=== PATIENT | female | born 1955 | race Hispanic/Latino ===

== ENCOUNTER 2017-02-17 08:25 | Inpatient (IN) | payer BC ==
[~2017-02-17] VITALS: Ht 152.4 cm; Wt 62.8 kg
[~2017-02-17 08:25] MED LIST: CIPROFLOXACN500 MG PO; GLIPIZIDE10 M2 PO; LISINOPRIL40 MG PO; METFORMIN1000 MG PO; PREVACID30 M3 PO
--- NOTE | 2017-02-17 08:50 | NUR ---
PT ON O2 2L/M VIA NC PER RT. NEB CONTINUES.
[2017-02-17] MEDS ORDERED: JENTADUETO1 TA1 PO (08:52)
[2017-02-17] MEDS ORDERED: MULTIVITAMIN PO (08:53)
[2017-02-17 09:14] LABS: HEMATOCRIT 31.2 % (37.0-47.0); HEMOGLOBIN 10.1 g/dl (12.0-16.0); IMMATURE GRANULOCYTES 0.8 % (0.0-1.0); MEAN CELL VOLUME 88.9 fL CALC (80.0-100.0); MEAN CORPUSCULAR HGB 28.8 pG CALC (26.0-32.0); MEAN CORPUSCULAR HGB CONC 32.4 g/L CALC (32.0-36.0); NEUT# 16.99 thou/uL (2.00-7.15); RED BLOOD COUNT 3.51 mill/uL (4.20-5.60); RED CELL DISTRI WIDTH 16.4 % (11.5-15.5)
[2017-02-17 09:22] LABS: ALBUMIN 3.5 g/dL (3.2-5.0); ALKALINE PHOSPHATASE 129 u/l (38-126); ANION GAP 14 (6-22 (CALC)); BILIRUBIN, TOTAL 0.8 mg/dL (0.0-1.4); BUN 10 mg/dL (8-23); BUN/CREATININE RATIO 12 (12-20 (CALC)); CALCIUM 9.1 mg/dL (8.4-10.2); CARBON DIOXIDE 27 mmol/l (22-30); CHLORIDE 104 mmol/l (95-108); CREATININE 0.8 mg/dL (0.5-1.0); GFR > 60 ML/MIN (>=60 (CALC)); GFR FOR AFR.AMER. > 60 ML/MIN (>=60 (CALC)); GLUCOSE 179 mg/dL (82-115); POTASSIUM 3.3 mmol/l (3.5-5.1); SGOT/AST 68 u/l (9-36); SGPT/ALT 56 u/l (11-66); SODIUM 141 mmol/l (137-146); TOTAL PROTEIN 7.7 g/dL (6.3-8.2)
[2017-02-17 09:23] LABS: INTERNATIONAL NORMALIZED RATIO 1.1 RATIO (0.7-1.3); PROTHROMBIN TIME 12.4 SECONDS (9.0-12.5)
[2017-02-17 09:34] LABS: MYOGLOBIN 41 ng/mL (0 - 62)
--- NOTE | 2017-02-17 09:50 | NUR ---
SBAR PRINTED TO FLOOR
--- NOTE | 2017-02-17 09:55 | NUR ---
PT TO BSC W/ASSIST. VOIDED APPROX 1000 ML YELLOW URINE. SPECIMEN COLLECTED. IV SITE HEALTHY
[2017-02-17 11:00] LABS: URINE BILIRUBIN - DIPSTICK NEGATIVE (NEGATIVE); URINE BLOOD DIPSTICK SMALL (NEGATIVE); URINE COLOR YELLOW; URINE GLUCOSE - DIPSTICK NEGATIVE (NEGATIVE); URINE KETONE NEGATIVE (NEGATIVE); URINE NITRITE - DIPSTICK NEGATIVE (Negative); URINE PH 5.5 (4.5-8.0); URINE PROTEIN - DIPSTICK NEGATIVE (NEG-TRACE); URINE SPECIFIC GRAVITY <=1.005; URINE UROBILINOGEN - DIPSTICK 0.2 E.U./dL (0.2)
[2017-02-17 11:01] LABS: URINE CLARITY HAZY; URINE LEUK ESTERASE SMALL (NEGATIVE)
[2017-02-17 11:02] LABS: URINE BACTERIA FEW hpf; URINE EPITHELIAL CELLS FEW EPI/hpf (0-FEW)
--- NOTE | 2017-02-17 11:02 | NUR ---
REPORT CALLED TO CHON SAGE, ON MEDSURG. PT TO MEDSURG VIA STRETCHER ON TELEMETRY. IV SITE HEALTHY. RESP EVEN AND UNLABORED. O2 2L/M VIA NC,
[2017-02-17 11:03] LABS: CHOLESTEROL HDL RATIO 6.8 (<4.4 (CALC)); MAGNESIUM 1.5 mg/dL (1.6-2.3)
--- NOTE | 2017-02-17 11:28 | NUR ---
PT ARRIVED TO FLOOR VIA STRETCHER ACCOMPANIED BY CHON WALLS AND FAMILY MEMBERS X 2. PT IS MONGOLIAN SPEAKING ONLY. FAMILY TRANSLATING AT THIS TIME. PT ORIENTED TO ROOM AND EQUIPMENT. CALL LIGHT REVIEWED AND IN REACH. PLAN OF CARE DISCUSSED. REPORTING OF CONCERNS ENCOURAGED. PT STATES UNDERSTANDING.
[2017-02-17 11:37] VITALS: BP 160/75
--- NOTE | 2017-02-17 15:01 | NUR ---
PT SITTING UPRIGHT IN BED. SEVERAL FAMILY MEMBERS AT BEDSIDE. NO COMPLAINTS AT THIS TIME. DR. WOOD IN TO SEE PT.
[2017-02-17 15:44] VITALS: BP 150/66
[2017-02-17 19:10] VITALS: BP 129/73
--- NOTE | 2017-02-17 19:30 | NUR ---
PATIENT SITTING ON THE SIDE OF THE BED WITH SEVERAL FAMILY MEMBERS AT BEDSIDE. PATIENT IS AWAKE ALERT AND ORIENTEDX3. PAKISTANI SPEAKING ONLY WITH FAMILY MEMBERS TRANSLATING FOR STAFF. PATIENT DENIES ANY PAIN AT THIS TIME. PATIENT IS VOIDING CLEAR YELLOW URINE AND HAD BM THIS MORNING. INSTRUCTED REGUARDING STRICT I&O AND TO SAVE ALL URINE FOR MEASURMENT. TELE MONITORING DEVICE IN PLACE AND HEP LOCK TO LEFT AC INTACT AND APPEARS HEALTHY AT THIS TIME. PATIENT IS WEARING O2 VIA NASAL CANNULA AT 2LPM. LUNGS ARE CLEAR AND ABD IS SOFT WITH BS+. BLE SWELLING NOTED AT 2+-ENCOURAGED TO KEEP FEET ELEVATED WHEN ABLE. SAFETY PRECATIONS REINFORCED WITH PATIENT AND FAMILY. CALL LIGHT IN REACH. WILL CONT TO MONITOR.
--- NOTE | 2017-02-17 20:15 | NUR ---
PATIENT WENT TO RADIOLOGY AND BACK FOR CTA CHEST VIA WHEELCHAIR. PATIENT TOLERATED WELL. NO COMPLAINTS AT THIS TIME. FAMILY REMAINS AT BEDSIDE. CALL LIGHT REMAINS IN REACH. WILL CONT TO MONITOR.
--- NOTE | 2017-02-17 21:00 | NUR ---
SITTING ON SIDE OF BED, RESPIRATIONS EVEN AND UNLABORED. DENIES SOB, DAUGHTER AT BED SIDE. CALL LIGHT IN REACH.
[2017-02-17 23:43] VITALS: BP 107/66
--- NOTE | 2017-02-18 00:30 | NUR ---
PT SITTING ON SIDE OF BED RESPIRATIONS EVEN AND UNLABORED ON O2 @2L VIA NC, C/O SOB WHEN LAYING IN BED, ORIENTED TO BED CONTROLS AND TO REPOSITION BED TO FOWLERS IF NEEDED, PT ADMITS TO FEELING BETTER WHEN IN FOWLERS POSITION OR SITTING ON SIDE OF BED. LASIX 40MG IV ADMINISTERED AT THS TIME. WILL CONTINUE TO MONITOR.
[2017-02-18 03:52] VITALS: BP 121/76
--- NOTE | 2017-02-18 05:30 | NUR ---
TEMP 101.3, DR. WOOD NOTIFIED, NEW ORDERS RECEIVED FOR TYLENOL AND B/C. B/C DRAWN BY KHADAR FINANCIAL COORDINATOR, PT TOLERATED WELL. TYLENOL 650MG PO ADMINISTERED AT 0607, WILL CONTINUE OT MONITOR, DENIES PAIN.
[2017-02-18 05:56] LABS: HEMATOCRIT 30.8 % (37.0-47.0); HEMOGLOBIN 10.1 g/dl (12.0-16.0); IMMATURE GRANULOCYTES 1.6 % (0.0-1.0); MEAN CELL VOLUME 87.7 fL CALC (80.0-100.0); MEAN CORPUSCULAR HGB 28.8 pG CALC (26.0-32.0); MEAN CORPUSCULAR HGB CONC 32.8 g/L CALC (32.0-36.0); NEUT# 15.14 thou/uL (2.00-7.15); RED BLOOD COUNT 3.51 mill/uL (4.20-5.60); RED CELL DISTRI WIDTH 16.4 % (11.5-15.5)
[2017-02-18 06:17] LABS: ANION GAP 15 (6-22 (CALC)); BUN 11 mg/dL (8-23); BUN/CREATININE RATIO 12 (12-20 (CALC)); CALCULATED LDLCHOLESTEROL 113 mg/dL (62-129 (CALC)); CARBON DIOXIDE 31 mmol/l (22-30); CHLORIDE 96 mmol/l (95-108); CHOLESTEROL HDL RATIO 6.4 (<4.4 (CALC)); CREATININE 0.9 mg/dL (0.5-1.0); GFR > 60 ML/MIN (>=60 (CALC)); GFR FOR AFR.AMER. > 60 ML/MIN (>=60 (CALC)); GLUCOSE 165 mg/dL (82-115); HDL CHOLESTEROL 28 mg/dL (>=40); MAGNESIUM 1.5 mg/dL (1.6-2.3); POTASSIUM 4.2 mmol/l (3.5-5.1); SODIUM 138 mmol/l (137-146); TOTAL CHOLESTEROL 178 mg/dl (0-199); TOTAL TRIGLYCERIDES 182 mg/dl (30-149); VLDL CHOLESTROL 36 mg/dl (1-41 (CALC))
--- NOTE | 2017-02-18 07:50 | NUR ---
REPORT RECEIVED FROM NADINE TERRY. PT SITTING ON SIDE OF BED. FAMILY MEMBER PRESENT. PT DENIES PAIN. NO SOB NOTED. EDEMA 2+ IN LE, MUCH IMPROVED FROM YESTERDAY. O2 @ 2L VIA NC. PLAN OF CARE DISCUSSED. REPORTING OF CONCERNS ENCOURAGED. CALL LIGHT REVIEWED AND IN REACH. FAMILY MEMBER ASSISTING FIBER OPTIC TECHNICIAN WITH TRANSLATION. PT STATES UNDERSTANDING.
[2017-02-18 07:52] VITALS: BP 117/62
--- NOTE | 2017-02-18 12:07 | NUR ---
PT SHOWERED, LINENS CHANGED. PT TOLERATED ACITIVTY WITHOUT SOB. MULTIPLE FAMILY MEMBERS IN ROOM AT THIS TIME.
--- NOTE | 2017-02-18 16:09 | NUR ---
PT DENIES COMPLAINTS AT THIS TIME. FAMILY PRESENT.
[2017-02-18 16:24] LABS: URINE BILIRUBIN - DIPSTICK NEGATIVE (NEGATIVE); URINE BLOOD DIPSTICK SMALL (NEGATIVE); URINE CLARITY HAZY; URINE COLOR YELLOW; URINE GLUCOSE - DIPSTICK 100 mg/dL (NEGATIVE); URINE KETONE NEGATIVE (NEGATIVE); URINE LEUK ESTERASE NEGATIVE (Negative); URINE NITRITE - DIPSTICK NEGATIVE (Negative); URINE PH 5.5 (4.5-8.0); URINE PROTEIN - DIPSTICK NEGATIVE (NEG-TRACE); URINE SPECIFIC GRAVITY 1.015; URINE UROBILINOGEN - DIPSTICK 0.2 E.U./dL (0.2)
[2017-02-18 16:29] LABS: URINE RBC 0-2 RBC/hpf (0-5); URINE SQUAMOUS EPITHELIAL CELL FEW EPI/hpf (0-FEW)
[2017-02-18 16:35] VITALS: BP 95/60
[2017-02-18 19:00] VITALS: BP 98/58
--- NOTE | 2017-02-18 21:22 | NUR ---
PT SITTING ON SIDE OF BED A/O X3, RESPIRATIONS EVEN AND UNLABORED ON O2 @2L VIA NC. ACCUCHECK 327, NOTIFIED DR. WOOD, NEW ORDER RECEIVED FOR NOVULOG 7UNITS SQ TOLERATED WELL, BED TIME SNACK PROVIDED. PT ADMITS TO FEELING BETTER TODAY, VANCOMYCIN SPIKED AND INFUSING TO LAC WITH NO COMPLICATIONS. FAMILY AT BED SIDE, ENCOURAGED TO USE CALL LIGHT FOR ASSISTANCE WILL CONTINUE TO MONITOR.
[2017-02-18 23:59] VITALS: BP 101/63
--- NOTE | 2017-02-19 00:11 | NUR ---
OOB AMBULATING TO BATHROOM WITH STEADY GAIT, VOIDING CLEAR YELLOW URINE. BACK TO BED CALL MONROE LEMUS. WILL CONTINUE TO MONITOR.
--- NOTE | 2017-02-19 04:00 | NUR ---
RESTING IN BED WITH EYES CLOSED, RESPIRATIONS EVEN AND UNLABORED. CALL LIGHT IN REACH.
[2017-02-19 06:19] LABS: HEMATOCRIT 29.5 % (37.0-47.0); HEMOGLOBIN 9.4 g/dl (12.0-16.0); IMMATURE GRANULOCYTES 0.7 % (0.0-1.0); MEAN CELL VOLUME 89.1 fL CALC (80.0-100.0); MEAN CORPUSCULAR HGB 28.4 pG CALC (26.0-32.0); MEAN CORPUSCULAR HGB CONC 31.9 g/L CALC (32.0-36.0); NEUT# 15.24 thou/uL (2.00-7.15); RED BLOOD COUNT 3.31 mill/uL (4.20-5.60); RED CELL DISTRI WIDTH 16.3 % (11.5-15.5)
[2017-02-19 06:34] LABS: ANION GAP 14 (6-22 (CALC)); BUN 22 mg/dL (8-23); BUN/CREATININE RATIO 22 (12-20 (CALC)); CARBON DIOXIDE 31 mmol/l (22-30); CHLORIDE 97 mmol/l (95-108); GFR 56 ML/MIN (>=60 (CALC)); GFR FOR AFR.AMER. > 60 ML/MIN (>=60 (CALC)); GLUCOSE 251 mg/dL (82-115); MAGNESIUM 1.9 mg/dL (1.6-2.3); POTASSIUM 4.4 mmol/l (3.5-5.1); SODIUM 138 mmol/l (137-146)
--- NOTE | 2017-02-19 07:41 | NUR ---
REPORT RECEIVED FROM NADINE TERRY. PT SITTING ON SIDE PF BED, PREPARING FOR SHOWER. NO COMPLAINTS AT THIS TIME. WET COUGH, CLEAR EXPECTORANT NOTED. 02 @ 2L VIA NC TO MAINTAIN SAT OF 90%. STEADY GAIT. PLAN OF CARE DISCUSSED. REPORTING OF CONCERNS ENCOURAGED. CALL LIGHT REVIEWED AND IN REACH. PT STATES UNDERSTANDING.
[2017-02-19 07:44] VITALS: BP 92/72
--- NOTE | 2017-02-19 09:30 | NUR ---
INFORMED OF PENDING TRANSFER TO [facility] PER DR. WOOD R/T ENDOCARDITIS. PT STATES UNDERSTANDING. [facility] CONFIRMS FACE SHEET RECEIVED. AWAITING BED ASSIGNMENT.
[2017-02-19 11:05] VITALS: BP 116/87
--- NOTE | 2017-02-19 12:00 | NUR ---
STILL AWAITING BED ASSIGNMENT FROM [facility].
--- NOTE | 2017-02-19 14:45 | NUR ---
ANOTHER FAX SHEET FAXED TO [facility] AT THIS TIME.
[2017-02-19 15:18] VITALS: BP 115/67
--- NOTE | 2017-02-19 17:37 | NUR ---
BED 879 A AT [facility] RECEIVED FROM CHON FRIEDMAN.
--- NOTE | 2017-02-19 17:44 | NUR ---
REPORT CALLED TO CHON LEWIS AT [facility].
[2017-02-19 18:50] VITALS: BP 113/62
--- NOTE | 2017-02-19 19:56 | NUR ---
PT SITTING ON SIDE OF BED A/O X3, RESPIRATIONS EVEN AND UNLABORED ON O2 @2L VIA NC. DENIES PAIN OR DISCOMFORT. TELE IN PLACE READING ST, PER ER. PT IS WAITING TO BE TRANSFERRED TO [facility] IS AWARE AND STATE WILL TRANSFER SELVIN. FAMILY AT BED SIDE. ENCOURAGED TO USE CALL LIGHT FOR ASSISTANCE. WILL CONTINUE TO MONITOR.
--- NOTE | 2017-02-19 20:00 | NUR ---
SPOKE WITH NURSING SHOP DIRECTOR JILLIAN GIVENS, [facility] AWARE OF PT'S TRANFER ORDER, WILL BE TRANSFERRING PT SELVIN. PT, FAMILY, AND DR. WOOD AWARE.
--- NOTE | 2017-02-19 22:39 | NUR ---
SPOKE WITH MERI ROBIN AT [facility], SHE IS AWARE OF THE DELAY WITH [facility] AT THIS TIME.
--- NOTE | 2017-02-19 23:40 | NUR ---
TRANSFERRED TO [facility] ACCOMPANIED BY [facility] AT THIS TIME. ALL BELONGINS TAKEN BY PT, ACCOMPANIED PT.
== END 2017-02-19 23:40 | disposition short-term general hospital (02) | DRG 871 ==
LOC: ED 08:25 → ED-I 09:45 → ED 10:20 → MS2 10:21
PROVIDERS: Emergency Medicine; Nurse Practitioner Family; ADMIT Internal Medicine; ATTEND Internal Medicine
DX: A41.9 Sepsis, unspecified organism (principal); I33.9 Acute and subacute endocarditis, unspecified; N39.0 Urinary tract infection, site not specified; E11.65 Type 2 diabetes mellitus with hyperglycemia; I11.0 Hypertensive heart disease with heart failure; I50.9 Heart failure, unspecified; E78.5 Hyperlipidemia, unspecified; R01.1 Cardiac murmur, unspecified; E87.6 Hypokalemia; E83.42 Hypomagnesemia; Z79.84 Long term (current) use of oral hypoglycemic drugs
CPT/HCPCS: J0692; J1650; J3370; Q9967